=== PATIENT | female | born 1970 | race Native Hawaiian/Other Pacific Islander ===

== ENCOUNTER 2017-04-22 16:33 | Emergency (ER) | payer OTHER ==
[~2017-04-22] VITALS: Ht 172.7 cm; Wt 80.7 kg
[~2017-04-22 16:33] MED LIST: CELEXA10 MG PO; CLON1TAB18 PO; METF500T PO; PANT40TA PO; ZIPR80CA PO
[2017-04-22 17:23] LABS: PLATELET COUNT 289 K/uL (152-353)
[2017-04-22 17:40] LABS: POTASSIUM 3.1 mmol/L (3.6-5.2); SODIUM 136 mmol/L (136-145)
[2017-04-22 21:35] VITALS: BP 156/88; TEMP 98
== END 2017-04-22 21:36 | disposition home or self-care (01) ==
LOC: ED 16:33
PROVIDERS: Specialist
DX: R11.2 Nausea with vomiting, unspecified (principal); J44.1 Chronic obstructive pulmonary disease with (acute) exacerbation
CPT/HCPCS: 80053; 81002; 82805; 85027; 96365; 96375; 96376; 99283; J2060; J2270; J2550; J2930

== ENCOUNTER 2017-05-17 14:10 | Emergency (ER) | payer OTHER ==
[~2017-05-17] VITALS: Ht 174 cm; Wt 74.8 kg
[2017-05-17 14:47] LABS: PLATELET COUNT 275 K/uL (152-353)
[2017-05-17 14:55] LABS: POTASSIUM 3.5 mmol/L (3.6-5.2); SODIUM 134 mmol/L (136-145)
[2017-05-17 15:25] VITALS: BP 142/89; TEMP 98.1
== END 2017-05-17 15:25 | disposition home or self-care (01) ==
LOC: ED 14:10
DX: E11.65 Type 2 diabetes mellitus with hyperglycemia (principal)
CPT/HCPCS: 36415; 80053; 81000; 82607; 83036; 85027; 99283

== ENCOUNTER 2017-10-26 07:18 | Day surgery (SDC) | payer OTHER ==
[~2017-10-26] VITALS: Ht 30.5 cm; Wt 0.5 kg
[2017-10-26 08:39] LABS: PLATELET COUNT 347 K/uL (152-353)
[2017-10-26 08:47] LABS: POTASSIUM 3.3 mmol/L (3.6-5.2); SODIUM 136 mmol/L (136-145)
== END 2017-10-26 12:46 | disposition home or self-care (01) ==
LOC: OR 07:18
PROVIDERS: Student in an Organized Health Care Education/Training Program
PROC: 0FT44ZZ Resection of Gallbladder, Percutaneous Endoscopic Approach (ICD-10-PCS; principal; 2017-10-26)
DX: K81.1 Chronic cholecystitis (principal)
CPT/HCPCS: 80053; 85027; J0132; J0330; J0690; J1100; J1170; J2001; J2250; J2704; J2710; J2765; J3010; J3490; S0028

== ENCOUNTER 2017-10-30 15:00 | Emergency (ER) | payer OTHER ==
[~2017-10-30] VITALS: Ht 172.7 cm; Wt 72.6 kg
[2017-10-30 15:05] VITALS: TEMP 98.3
[2017-10-30 16:30] VITALS: BP 124/74
== END 2017-10-30 16:30 | disposition home or self-care (01) ==
LOC: ED 15:00
DX: S92.154A Nondisplaced avulsion fracture (chip fracture) of right talus, initial encounter for closed fracture (principal); X50.1XXA Overexertion from prolonged static or awkward postures, initial encounter; Y93.89 Activity, other specified; Y92.098 Other place in other non-institutional residence as the place of occurrence of the external cause
CPT/HCPCS: 99282; L4350

== ENCOUNTER 2018-04-06 22:08 | Emergency (ER) | payer OTHER ==
[~2018-04-06] VITALS: Ht 172.7 cm; Wt 71.7 kg
[2018-04-06 22:15] VITALS: BP 145/69; TEMP 97.3
== END 2018-04-06 23:05 | disposition home or self-care (01) ==
LOC: ED 22:08
DX: M25.571 Pain in right ankle and joints of right foot (principal)
CPT/HCPCS: 99282